=== PATIENT | female | born 1960 | race Hispanic/Latino ===

== ENCOUNTER 2019-08-30 11:57 | Emergency (ER) | payer SELFPAY ==
[2019-08-30] VITALS (7 sets, daily range): BP systolic 163–195; BP diastolic 70–84; PULSE 71–108; RESP 15–22; TEMP 37.7; O2SAT 97–99
--- NOTE | 2019-08-30 12:25 | DI.RAD.S_ITS ---
PROCEDURE: XR CHEST 1V INDICATIONS: elevated BP, indigestion TECHNIQUE: One view of the chest was acquired. COMPARISON: None. FINDINGS: Surgical changes and devices: None. Lungs and pleura: Interstitial prominence within the lungs is identified without a definite area of pulmonary consolidation. No large effusion or pneumothorax is appreciated. Mediastinum: Mediastinal contours appear normal. Heart size is normal. There is aortic atherosclerosis. Bones and chest wall: No suspicious bony lesions. Overlying soft tissues appear unremarkable. IMPRESSION: Mild interstitial prominence within the lungs may represent chronic lung changes. Pulmonary edema or interstitial pneumonia could also have this appearance and clinical correlation is recommended. Dictated by: David Camejo M.D. on 08/30/2019 at 12:00 Approved by: David Camejo M.D. on 08/30/2019 at 12:00
--- NOTE | 2019-08-30 12:31 | ED.CHESTPAIN ---
HPI - Chest Pain <KAE Blackburn - Last Filed: 08/30/19 23:49> General Chief Complaint: Urogenital-Female Stated Complaint: hb/ diabetes/ rt ear pain/ pain urinating Time Seen by Provider: 08/30/19 12:07 Source: family Mode of arrival: Family Vehicle Limitations: language barrier History of Present Illness HPI narrative: This is a 59-year-old female, nonsmoker, who is visiting son and family from [place] presents to ED with her son and [id number] with chief complain of elevated blood pressure, chronic UTI, right ear pain and medication refill request. Patient presents to walk-in clinic today and was referred to ER for an evaluation. [id number] reports she was concerned since patient's blood pressure at home was measured and noted as 187/111 and decided to bring her into the clinic. With elevated blood pressure, patient frequently feels as need to burp and pressure in chest and abdomen which has been causing difficulty with sleeping at night and also headache. Patient denies vision change, weakness to limbs, speech difficulty, balance problem, fever/chills, nausea or vomiting. Patient has a history of hypertension, diabetes, frequent UTIs and is currently taking multiple blood pressure medications and oral hypoglycemic agents. Patient is planning to return to [place] in September. Patient had taken decongestant that was prescribed in [place] and last dose was 4-5 days ago. She also reports occasional tingling/numbness to R lip since last March. Patient takes 2 baby aspirins daily. Related Data Home Medications Medication Instructions Recorded Confirmed amlodipine 5 mg PO DAILY 08/30/19 08/30/19 metformin 850 mg PO BID 08/30/19 08/30/19 nifedipine 30 mg PO DAILY 08/30/19 08/30/19 telmisartan 40 mg PO QACLUNCH 08/30/19 08/30/19 Previous Rx's Medication Instructions Recorded amlodipine 5 mg PO DAILY #60 tab 08/30/19 metformin 850 mg PO BID #120 tab 08/30/19 nifedipine 30 mg PO DAILY #60 tab 08/30/19 telmisartan 40 mg PO DAILY #60 tab 08/30/19 Allergies Allergy/AdvReac Type Severity Reaction Status Date / Time No Known Drug Allergies Allergy Verified 08/30/19 12:25 Review of Systems <KAE Blackburn - Last Filed: 08/30/19 23:49> Review of Systems Narrative: General: Denies fever, chills, fatigue, malaise, sweats. HEENT: Denies sinus pain, (+) ear pain, sore throat, difficulty swallowing, dizziness. Respiratory: Denies dyspnea, cough, wheezing, hemoptysis, sputum. Cardiovascular: HPI Gastrointestinal: Denies nausea, vomiting, abdominal pain, diarrhea, constipation, melena. : Denies dysuria, frequency, incontinence, hematuria, urinary retention. Musculoskeletal: Denies weakness, joint pain or bony pain. Skin: Denies rash, skin lesions, or other. Neurologic: Denies weakness, headache, numbness, change in speech, confusion, seizures, incoordination. Patient History <KAE Blackburn - Last Filed: 08/30/19 23:49> Medical History Chronic UTI (Acute) Social History Smoking Status: Never smoker Smoking Status: Never smoker alcohol intake frequency: 0-2 drinks per day Substance Use Type: does not use Exam <KAE Blackburn - Last Filed: 08/30/19 23:49> Narrative Exam Narrative: GEN: Alert, oriented x 3, well appearing and nourished, and in no acute distress. Head: Normal cephalic, atraumatic. No scalp or temporal tenderness, palpable mass or rash. EYES: Pupils are equal, round, and reactive to light and accommodation. Extraocular muscles are intact bilaterally. There is no subconjunctival hemorrhage, exudate and sclera non-icteric. ENT: Bilateral auditory canals and tympanic membranes clear. Hearing grossly intact. Nose without bleeding, purulent discharge or deviation. Facial sinuses nontender to palpate. Mucous membrane moist, no mucosal lesion. Throat without erythema, tonsillar hypertrophy or exudate. Uvula in midline, airway patent. Neck: Trachea in midline. No JVD, non-tender without lymphadenopathy. No masses or thyroid megaly. Supple, non-tender and no meningeal signs. CARDIAC: Normal regular rate and rhythm without murmurs, gallops, or rubs. No chest wall tenderness. No peripheral edema, cyanosis or pallor. Capillary refill is less than 2 seconds. RESPIRATORY: Lungs are clear to auscultate bilaterally. No cough, wheezes, rales, or rhonchi. No stridor, respiratory distress, increase work of breathing, or accessary muscle used. ABD: Abdomen soft, nontender and non-distended. No guarding or rebound tenderness to palpate. Bowel sounds are normal in all 4 quadrants. There is no palpable masses or organomegaly. EXT: Full painless ROM of all extremities with no loss of sensation, strength, effusion or edema. SKIN: Warm, dry, normal color for patient. No erythema, lesions or rash over visible areas. BACK: Nontender without deformity or crepitance. No flank tenderness. NEUROLOGICAL: Alert and oriented to place, time and person. Sensation and motor function intact bilaterally. No facial droops, dysphasia. Initial Vital Signs Initial Vital Signs: Vital Signs Temperature 100 F H 08/30/19 12:17 Pulse Rate 108 H 08/30/19 12:17 Respiratory Rate 22 08/30/19 12:17 Blood Pressure 195/84 H 08/30/19 12:17 Pulse Oximetry 99 08/30/19 12:17 <Esteban Marin DO - Last Filed: 08/31/19 08:03> Initial Vital Signs Initial Vital Signs: Vital Signs Temperature 100 F H 08/30/19 12:17 Pulse Rate 108 H 08/30/19 12:17 Respiratory Rate 22 08/30/19 12:17 Blood Pressure 195/84 H 08/30/19 12:17 Pulse Oximetry 99 08/30/19 12:17 Scores <KAE Blackburn - Last Filed: 08/30/19 23:49> GCS [place] coma scale eye opening: Spontaneous [place] coma scale verbal response: Orientated [place] coma scale motor response: Obey commands Gary coma scale total score: 15 HEART Score Heart Score history: Slightly Suspicious Heart Score EKG: Non-Specific repolarization disturbance Heart Score Age: 45-64 years old Heart Score risk factors: 1-2 risk factors Heart Score troponin: < or = to normal limit Heart Score Total: 3 NIH Stroke Scale Level of Conciousness: Alert, keenly responsive Ask month/age: Answers both questions correctly. Open/close eyes, close hand: Performs both tasks correctly Best gaze horizontal: Normal Visual pires: No visual loss Facial palsy: Normal symetrical movement Left arm drift: No drift for full 10 sec Right arm drift: No drift for full 10 sec Left leg drift: No drift for full 10 sec Right leg drift: No drift for full 10 sec Limb ataxia: Absent Sensory on face/arms/legs: Normal, no sensory loss Best language: No aphasia, normal Dysarthria: Normal Extinction or inattention: No abnormality Total NIH Stroke scale score: 0 Course <KAE Blackburn - Last Filed: 08/30/19 23:49> Orders Ordered: Discontinued Medications Al Hydrox/Mg Hydrox/Simethicone 20 ml/ Lidocaine HCl 15 ml 0 ml PO NOW ONE Stop: 08/30/19 16:49 Last Admin: 08/30/19 17:00 Dose: 20 ml Documented by: [facility] Sodium Chloride (Normal Saline 0.9%) 500 mls @ 1,000 mls/hr IV BOLUS PRN PRN Reason: Fluid replacement Last Infusion: 08/30/19 15:02 Dose: 0 mls/hr [facility] Admin: 08/30/19 13:42 Dose: 1,000 mls/hr Documented by: [facility] Vital Signs Vital signs: Vital Signs - 8 hr 08/30/19 15:37 08/30/19 16:28 08/30/19 17:32 Pulse Rate 71 75 82 Respiratory Rate 16 15 18 Blood Pressure [Left Arm] 167/70 H 163/76 H 177/82 H Pulse Oximetry 98 99 97 <Esteban Marin DO - Last Filed: 08/31/19 08:03> Orders Ordered: Discontinued Medications Al Hydrox/Mg Hydrox/Simethicone 20 ml/ Lidocaine HCl 15 ml 0 ml PO NOW ONE Stop: 08/30/19 16:49 Last Admin: 08/30/19 17:00 Dose: 20 ml Documented by: [facility] Sodium Chloride (Normal Saline 0.9%) 500 mls @ 1,000 mls/hr IV BOLUS PRN PRN Reason: Fluid replacement Last Infusion: 08/30/19 15:02 Dose: 0 mls/hr Documented by: [facility] Admin: 08/30/19 13:42 Dose: 1,000 mls/hr Documented by: [facility] Vital Signs Vital signs: Vital Signs - 8 hr 08/30/19 15:37 08/30/19 16:28 08/30/19 17:32 Pulse Rate 71 75 82 Respiratory Rate 16 15 18 Blood Pressure [Left Arm] 167/70 H 163/76 H 177/82 H Pulse Oximetry 98 99 97 MDM - Chest Pain <Ambrosio KAE Reaves - Last Filed: 08/30/19 23:49> Differential Diagnosis Differential diagnosis: Likely atypical chest pain and other (Encounter for medication refill, hypertension, diabetes, esophageal spasm) Medical Records Data Attestation: I reviewed the patient's medical records. Lab Data Attestation: I reviewed the patient's lab results. Result diagrams: 08/30/19 12:25 08/30/19 12:25 Labs: Lab Results 08/30/19 08/30/19 08/30/19 Range/Units 12:25 12:25 12:25 WBC 11.8 H (4.5-11.0) X10^3/uL RBC 4.65 (4.0-5.2) X10^6/uL Hgb 14.4 (12.0-16.0) g/dL Hct 41.4 (36-46) % MCV 88.9 (80-100) fL MCH 31.0 (26-34) PG MCHC 34.9 (30-36) % RDW 12.6 (11.6-14.8) % Plt Count 255 (150-400) X10^3/uL Neut % (Auto) 68.8 (50-75) % Lymph % (Auto) 21.1 L (25-40) % [place] % (Auto) 4.4 (3-14) % Eos % (Auto) 5.1 H (2-4) % Baso % (Auto) 0.6 (0-2) % Neut # (Auto) 8100 H (4540-8865) /uL Lymph # (Auto) 2500 (1118-6930) /uL [place] # (Auto) 500 (0-900) /uL Eos # (Auto) 600 H (0-450) /uL Baso # (Auto) 100 (0-100) /uL PT 11.3 (10.1-12.7) SECONDS INR 1.0 (0.9-1.3) APTT 34 (26.4-36.2) SECONDS Sodium 139 (137-145) mmol/L Potassium 3.7 (3.4-5.1) mmol/L Chloride 97 L (98-107) mmol/L Carbon Dioxide 28 (22-32) mmol/L BUN 13 (7-17) mg/dL Creatinine 0.60 (0.52-1.04) mg/dL Estimated GFR > 60.0 (>60) mL/min BUN/Creatinine Ratio 21.7 (6-22) Glucose 243 H (80-110) mg/dL Calcium 9.9 (8.4-10.2) mg/dL Total Bilirubin 0.5 (0.2-1.3) mg/dL AST 33 (14-36) IU/L ALT 26 (<35) IU/L Alkaline Phosphatase 123 (38-126) U/L Total Creatine Kinase 66 (30-135) U/L CK-MB (CK-2) TNP CK-MB (CK-2) Rel Index TNP Troponin I < 0.012 (0.01-0.034) ng/mL Total Protein 8.1 (6.3-8.2) g/dL Albumin 4.8 (3.5-5.0) g/dL Globulin 3.3 (1.7-4.1) g/dL Albumin/Globulin Ratio 1.5 (1.0-2.8) Lipase 136 (23-300) U/L 08/30/19 Range/Units 15:26 WBC (4.5-11.0) X10^3/uL RBC (4.0-5.2) X10^6/uL Hgb (12.0-16.0) g/dL Hct (36-46) % MCV (80-100) fL MCH (26-34) PG MCHC (30-36) % RDW (11.6-14.8) % Plt Count (150-400) X10^3/uL Neut % (Auto) (50-75) % Lymph % (Auto) (25-40) % [place] % (Auto) (3-14) % Eos % (Auto) (2-4) % Baso % (Auto) (0-2) % Neut # (Auto) (8517-7438) /uL Lymph # (Auto) (2629-5736) /uL [place] # (Auto) (0-900) /uL Eos # (Auto) (0-450) /uL Baso # (Auto) (0-100) /uL PT (10.1-12.7) SECONDS INR (0.9-1.3) APTT (26.4-36.2) SECONDS Sodium (137-145) mmol/L Potassium (3.4-5.1) mmol/L Chloride (98-107) mmol/L Carbon Dioxide (22-32) mmol/L BUN (7-17) mg/dL Creatinine (0.52-1.04) mg/dL Estimated GFR (>60) mL/min BUN/Creatinine Ratio (6-22) Glucose (80-110) mg/dL Calcium (8.4-10.2) mg/dL Total Bilirubin (0.2-1.3) mg/dL AST (14-36) IU/L ALT (<35) IU/L Alkaline Phosphatase (38-126) U/L Total Creatine Kinase (30-135) U/L CK-MB (CK-2) CK-MB (CK-2) Rel Index Troponin I < 0.012 (0.01-0.034) ng/mL Total Protein (6.3-8.2) g/dL Albumin (3.5-5.0) g/dL Globulin (1.7-4.1) g/dL Albumin/Globulin Ratio (1.0-2.8) Lipase (23-300) U/L Urine Dip Bedside Urine Glucose 100 mg/dl Bedside Urine Bilirubin - Negative Bedside Urine Ketone +/- 5 Urine Specific [place] 1.015 Bedside Urine Occult Blood - Negative Bedside Urine pH 6.0 Bedside Urine Protein - Negative Bedside Urine Urobilinogen - Negative Bedside Urine Nitrite - Negative Bedside Urine Leukocytes - Negative Esterase Imaging Data Chest x-ray: Radiologist's Impression: [address] [address] XRay Report Signed Patient: Elizabeth Shah#: [id number] : 8Acct:[id number] Age/Sex: 59 / FDate of Service: 08/30/19 Loc: ED Accession Number: [id number] Procedure: XR chest 1V Ordering Provider: Ambrosio Reaves PROCEDURE: XR CHEST 1V INDICATIONS: elevated BP, indigestion TECHNIQUE: One view of the chest was acquired. COMPARISON: None. FINDINGS: Surgical changes and devices: None. Lungs and pleura: Interstitial prominence within the lungs is identified without a definite area of pulmonary consolidation. No large effusion or pneumothorax is appreciated. Mediastinum: Mediastinal contours appear normal. Heart size is normal. There is aortic atherosclerosis. Bones and chest wall: No suspicious bony lesions. Overlying soft tissues appear unremarkable. IMPRESSION: Mild interstitial prominence within the lungs may represent chronic lung changes. Pulmonary edema or interstitial pneumonia could also have this appearance and clinical correlation is recommended. Dictated by: David Camejo M.D. on 08/30/2019 at 12:00 Approved by: David Camejo M.D. on 08/30/2019 at 12:00 ECG Data Attestation: I personally reviewed and interpreted this ECG as follows: Prior ECG tracings: not available for review Interpretation: #1-SR rate at 87 L [place]. Moderate T wave abnormalty TN int 149, QRS duration 104, QTc 444 #2-SR rate at [address] [place] [address] and T anormalty TN int 154, QRS dur 104, QTc 435 No significant changes from the 1st EKG MDM Narrative Medical decision making narrative: This is a 59-year-old female who is visiting her children from [place] presents to ED with requesting hypertension and diabetes medication refill and [id number] is concerned with patient's elevated blood pressure. Patient also reports frequent feeling of burping and pressure in epigastric region and urinary frequency. Patient's had significantly elevated blood pressure as 195/84 with heart rate of 108. Given patient's indigestion/burping sensation, cardiac enzyme test, EKG and chest x-ray were ordered. First cardiac enzymes were negative. Chest x-ray does not show acute findings but mild interstitial prominence within the lungs which may present chronic lung changes, pulmonary edema or interstitial pneumonia. Patient was afebrile and denied dyspnea, short of breath, with O2 sat of 97-99% in room air. Lung sounds were clear. EKG was sinus rhythm with moderate T-wave abnormalty and L axis dominant. CBC chemistry test was unremarkable except elevated blood glucose of 243. 3 hour troponin was also negative with no changes in EKG. Patient's blood pressure had improved to 160-170/70-80 mostly with normal heart rate. Urine was negative for nitrite and leukocytes esterase with urine glucose of 100 and a small amount of urine ketones. Normal LFT and kidney function test today. Patient's routine medication has been refilled as requested for 2 months. Patient advised to follow-up with PCP and consumer lender for stress test when she returns to [place]. Patient was medicated with GI cocktail which resolved her symptoms. Patient has occasional tingling and numbness on her lip may due to diabetic paresthesia or cervical radiculopathy after she fell and injured her neck and shoulder a several months ago which her symptoms have started as well. Patient advised to monitor her blood pressure 3 times a day for 3 times a week and keep track on days to bring back to [place] for follow-up with PCP for possible medication adjustment. Patient advised continue to take aspirin daily. If patient noticed significantly elevated blood pressure at home, patient was instructed to take additional half tab of 1 update once a day medication and to recheck blood pressure. Return precautions were discussed with the patient and verbalized understanding and agrees with the treatment plan. Good Rx coupon has been provided. <Esteban Marin, DO - Last Filed: 08/31/19 08:03> Lab Data Labs: Lab Results 08/30/19 08/30/19 08/30/19 Range/Units 12:25 12:25 12:25 WBC 11.8 H (4.5-11.0) X10^3/uL RBC 4.65 (4.0-5.2) X10^6/uL Hgb 14.4 (12.0-16.0) g/dL Hct 41.4 (36-46) % MCV 88.9 (80-100) fL MCH 31.0 (26-34) PG MCHC 34.9 (30-36) % RDW 12.6 (11.6-14.8) % Plt Count 255 (150-400) X10^3/uL Neut % (Auto) 68.8 (50-75) % Lymph % (Auto) 21.1 L (25-40) % [place] % (Auto) 4.4 (3-14) % Eos % (Auto) 5.1 H (2-4) % Baso % (Auto) 0.6 (0-2) % Neut # (Auto) 8100 H (4948-6534) /uL Lymph # (Auto) 2500 (9310-0647) /uL [place] # (Auto) 500 (0-900) /uL Eos # (Auto) 600 H (0-450) /uL Baso # (Auto) 100 (0-100) /uL PT 11.3 (10.1-12.7) SECONDS INR 1.0 (0.9-1.3) APTT 34 (26.4-36.2) SECONDS Sodium 139 (137-145) mmol/L Potassium 3.7 (3.4-5.1) mmol/L Chloride 97 L (98-107) mmol/L Carbon Dioxide 28 (22-32) mmol/L BUN 13 (7-17) mg/dL Creatinine 0.60 (0.52-1.04) mg/dL Estimated GFR > 60.0 (>60) mL/min BUN/Creatinine Ratio 21.7 (6-22) Glucose 243 H (80-110) mg/dL Calcium 9.9 (8.4-10.2) mg/dL Total Bilirubin 0.5 (0.2-1.3) mg/dL AST 33 (14-36) IU/L ALT 26 (<35) IU/L Alkaline Phosphatase 123 (38-126) U/L Total Creatine Kinase 66 (30-135) U/L CK-MB (CK-2) TNP CK-MB (CK-2) Rel Index TNP Troponin I < 0.012 (0.01-0.034) ng/mL Total Protein 8.1 (6.3-8.2) g/dL Albumin 4.8 (3.5-5.0) g/dL Globulin 3.3 (1.7-4.1) g/dL Albumin/Globulin Ratio 1.5 (1.0-2.8) Lipase 136 (23-300) U/L 08/30/19 Range/Units 15:26 WBC (4.5-11.0) X10^3/uL RBC (4.0-5.2) X10^6/uL Hgb (12.0-16.0) g/dL Hct (36-46) % MCV (80-100) fL MCH (26-34) PG MCHC (30-36) % RDW (11.6-14.8) % Plt Count (150-400) X10^3/uL Neut % (Auto) (50-75) % Lymph % (Auto) (25-40) % [place] % (Auto) (3-14) % Eos % (Auto) (2-4) % Baso % (Auto) (0-2) % Neut # (Auto) (2725-0354) /uL Lymph # (Auto) (8949-2681) /uL [place] # (Auto) (0-900) /uL Eos # (Auto) (0-450) /uL Baso # (Auto) (0-100) /uL PT (10.1-12.7) SECONDS INR (0.9-1.3) APTT (26.4-36.2) SECONDS Sodium (137-145) mmol/L Potassium (3.4-5.1) mmol/L Chloride (98-107) mmol/L Carbon Dioxide (22-32) mmol/L BUN (7-17) mg/dL Creatinine (0.52-1.04) mg/dL Estimated GFR (>60) mL/min BUN/Creatinine Ratio (6-22) Glucose (80-110) mg/dL Calcium (8.4-10.2) mg/dL Total Bilirubin (0.2-1.3) mg/dL AST (14-36) IU/L ALT (<35) IU/L Alkaline Phosphatase (38-126) U/L Total Creatine Kinase (30-135) U/L CK-MB (CK-2) CK-MB (CK-2) Rel Index Troponin I < 0.012 (0.01-0.034) ng/mL Total Protein (6.3-8.2) g/dL Albumin (3.5-5.0) g/dL Globulin (1.7-4.1) g/dL Albumin/Globulin Ratio (1.0-2.8) Lipase (23-300) U/L Urine Dip Bedside Urine Glucose 100 mg/dl Bedside Urine Bilirubin - Negative Bedside Urine Ketone +/- 5 Urine Specific [place] 1.015 Bedside Urine Occult Blood - Negative Bedside Urine pH 6.0 Bedside Urine Protein - Negative Bedside Urine Urobilinogen - Negative Bedside Urine Nitrite - Negative Bedside Urine Leukocytes - Negative Esterase Discharge Plan Departure Patient Disposition: Home Clinical Impression: Elevated blood pressure reading with diagnosis of hypertension, Encounter for medication refill Diabetes Qualifiers: Diabetes mellitus type: type 2 Diabetes mellitus tank terminal gauger insulin use: unspecified tank terminal gauger insulin use status Diabetes mellitus complication status: with other specified complication Qualified Code(s): E11.69 - Type 2 diabetes mellitus with other specified complication Discharge Date/Time: 08/30/19 17:46 Instructions: Essential Hypertension, DI for Diabetes Type 2 Activity Restrictions/Additional Instructions: You have been diagnosed with [elevated blood pressure, diabetes, urinary frequency. Cardiac enzyme test that was done twice today with the EKG were unremarkable. Urine doesn't appears to be having an infection. Your chemistry test was unremarkable except elevated glucose 243. Mild interstitial prominence within the lungs may indicating chronic lung changes. Your blood pressure was average in 160s to 170s over 70s to 80s while in the ED. you were medicated with GI cocktail while in ED. you can add Mylanta/ Zantac/Omeprazole if you have stomach issues which you can get it [id number].]. What to do: *Take your medications as directed. *Follow up with your primary care provider in 2-3 days, call for an appointment. Let them know you were seen in the ED and that we asked you to be seen in follow up. You may need stress test when you return to [place]. *Return to ED if you have any new, worsening, or concerning symptoms, such as [chest pain, breathing difficulty, dizziness, speech difficulty, vision change, balance problem, or any acute concerns]. Prescriptions: New amlodipine 5 mg tablet 5 mg PO DAILY Qty: 60 RF: 0 metformin 850 mg tablet 850 mg PO BID Qty: 120 RF: 0 nifedipine 30 mg tablet extended release 30 mg PO DAILY Qty: 60 RF: 0 telmisartan 40 mg tablet 40 mg PO DAILY Qty: 60 RF: 0 No Action metformin 850 mg Tablet 850 mg PO BID RF: 0 nifedipine 30 mg Tablet Extended Release 30 mg PO DAILY RF: 0 amlodipine 5 mg Tablet 5 mg PO DAILY RF: 0 telmisartan 40 mg Tablet 40 mg PO QACLUNCH RF: 0
[2019-08-30 12:33] LABS: Add Manual Diff / Slide Review NO; Basophils Absolute Auto 100 /uL (0-100); Basophils Percent Auto 0.6 % (0-2); Eosinophils Absolute Auto 600 /uL (0-450); Eosinophils Percent Auto 5.1 % (2-4); Hematocrit 41.4 % (36-46); Hemoglobin 14.4 g/dL (12.0-16.0); Lymphocytes Absolute Auto 2500 /uL (1100-4500); Lymphocytes Percent Auto 21.1 % (25-40); Mean Corpuscular HGB Conc 34.9 % (30-36); Mean Corpuscular Volume 88.9 fL (80-100); Monocytes Absolute Auto 500 /uL (0-900); Monocytes Percent Auto 4.4 % (3-14); Neutrophils Absolute Auto 8100 /uL (1500-7000); Neutrophils Percent Auto 68.8 % (50-75); Platelet Count 255 X10^3/uL (150-400); Red Blood Cell Count 4.65 X10^6/uL (4.0-5.2); Red Cell Distribution Width 12.6 % (11.6-14.8); White Blood Cell Count 11.8 X10^3/uL (4.5-11.0)
[2019-08-30 12:43] LABS: Prothrombin Time 11.3 SECONDS (10.1-12.7)
[2019-08-30 12:46] LABS: PTT Partial Thromboplastin Tim 34 SECONDS (26.4-36.2)
[2019-08-30 13:04] LABS: Alanine Aminotransferase 26 IU/L (<35); Albumin 4.8 g/dL (3.5-5.0); Albumin Globulin Ratio 1.5 (1.0-2.8); Alkaline Phosphatase 123 U/L (38-126); Aspartate Aminotransferase 33 IU/L (14-36); BUN Creatinine Ratio 21.7 (6-22); Bilirubin Total 0.5 mg/dL (0.2-1.3); Blood Urea Nitrogen 13 mg/dL (7-17); Calcium 9.9 mg/dL (8.4-10.2); Carbon Dioxide 28 mmol/L (22-32); Chloride 97 mmol/L (98-107); Creatine Kinase 66 U/L (30-135); Estimated Glomerular Filt Rate > 60.0 mL/min (>60); Globulin 3.3 g/dL (1.7-4.1); Glucose 243 mg/dL (80-110); HEMOLYSIS < 15 (0-50); Lipase 136 U/L (23-300); Potassium 3.7 mmol/L (3.4-5.1); Sodium 139 mmol/L (137-145); Total Protein 8.1 g/dL (6.3-8.2)
[2019-08-30 13:15] LABS: Troponin I < 0.012 ng/mL (0.01-0.034)
[2019-08-30] MEDS: SODIUM CHLORIDE 0.9% 500 ML 1000 ML IV (13:42)
--- NOTE | 2019-08-30 14:57 | PC.NURSE ---
pt ambulating to bathroom
[2019-08-30 17:00] LABS: Troponin I < 0.012 ng/mL (0.01-0.034)
[2019-08-30] MEDS: MAG HYDROX/ALUMINUM/SIMETH SUS 20 ML, LIDOCAINE VISCOUS 2% 15 ML PO (17:00)
== END 2019-08-30 17:46 | disposition home or self-care (01) ==
PROVIDERS: Emergency Provider Nurse Practitioner Family
DX: I10 Essential (primary) hypertension (principal); E11.69 Type 2 diabetes mellitus with other specified complication; K30 Functional dyspepsia; R30.9 Painful micturition, unspecified
CPT/HCPCS: 36415; 71045; 80053; 81003; 82550; 83690; 84484; 85025; 85610; 85730; 93005; 96360; 99285

== ENCOUNTER 2023-06-11 17:34 | Emergency (ER) | payer SELFPAY ==
[2023-06-11] VITALS (16 sets, daily range): BP systolic 150–202; BP diastolic 71–97; PULSE 63–77; RESP 16–21; TEMP 36.4–37.1; O2SAT 96–98
--- NOTE | 2023-06-11 18:05 | DI.RAD.S_ITS ---
PROCEDURE: XR CHEST 1V INDICATIONS: chest pain TECHNIQUE: One view of the chest was acquired. COMPARISON: [facility], CR, XR CHEST 1V, 08/30/2019, 12:45. FINDINGS: Surgical changes and devices: None. Lungs and pleura: Lungs are clear. No pleural effusions or pneumothorax. Mediastinum: Mediastinal contours appear normal. Heart size is normal. Bones and chest wall: No suspicious bony lesions. Overlying soft tissues appear unremarkable. IMPRESSION: No acute cardiopulmonary pathology. Dictated by: Hai Miguel M.D. on 06/11/2023 at 18:32 Approved by: Hai Miguel M.D. on 06/11/2023 at 18:32
--- NOTE | 2023-06-11 18:20 | DI.RAD.S_ITS ---
PROCEDURE: XR ABDOMEN MIN 2V INDICATIONS: abd pain L sided, goes to chest TECHNIQUE: 2 views of the abdomen were acquired. COMPARISON: None. FINDINGS: Surgical changes and devices: None. Bowel: No pneumoperitoneum. The bowel gas pattern is nonobstructive. Significant fecal burden throughout the colon is seen. Soft tissues: No masses; visualized solid organ contours appear normal in size. No suspicious abdominal calcifications. Bones: No suspicious bony abnormalities. IMPRESSION: Moderate constipation. No gross free air. No abnormal renal calcifications. Dictated by: Hai Miguel M.D. on 06/11/2023 at 18:51 Approved by: Hai Miguel M.D. on 06/11/2023 at 18:52
[2023-06-11 18:47] LABS: Add Manual Diff / Slide Review NO; Basophils Absolute Auto 100 /uL (0-100); Basophils Percent Auto 0.4 % (0-2); Eosinophils Absolute Auto 100 /uL (0-450); Hematocrit 40.9 % (36-46); Hemoglobin 13.9 g/dL (12.0-16.0); Lymphocytes Absolute Auto 2800 /uL (1100-4500); Lymphocytes Percent Auto 23.1 % (25-40); Mean Corpuscular HGB Conc 33.9 % (30-36); Mean Corpuscular Hemoglobin 30.2 PG (26-34); Mean Corpuscular Volume 88.9 fL (80-100); Monocytes Absolute Auto 700 /uL (0-900); Monocytes Percent Auto 5.5 % (3-14); Neutrophils Absolute Auto 8600 /uL (1500-7000); Platelet Count 191 X10^3/uL (150-400); Prothrombin Time 11.5 SECONDS (10.1-12.7); Red Cell Distribution Width 13.5 % (11.6-14.8); White Blood Cell Count 12.3 X10^3/uL (4.5-11.0)
[2023-06-11 18:49] LABS: PTT Partial Thromboplastin Tim 29 SECONDS (26-36)
[2023-06-11 18:59] LABS: Alanine Aminotransferase 34 IU/L (<35); Albumin 4.3 g/dL (3.5-5.0); Albumin Globulin Ratio 1.2 (1.0-2.8); Alkaline Phosphatase 82 U/L (38-126); Aspartate Aminotransferase 35 IU/L (14-36); BUN Creatinine Ratio 23.1 (6-22); Bilirubin Total 0.7 mg/dL (0.2-1.3); Blood Urea Nitrogen 12 mg/dL (7-17); Calcium 9.6 mg/dL (8.4-10.2); Carbon Dioxide 30 mmol/L (22-32); Chloride 97 mmol/L (98-107); Creatine Kinase 62 U/L (30-135); Estimated Glomerular Filt Rate > 60 mL/min (>60); Globulin 3.5 g/dL (1.7-4.1); Glucose 225 mg/dL (80-110); HEMOLYSIS < 15 (0-50); Lipase 167 U/L (23-300); Magnesium 2.3 mg/dL (1.6-2.3); Potassium 3.4 mmol/L (3.4-5.1); Sodium 138 mmol/L (137-145); Total Protein 7.8 g/dL (6.3-8.2)
[2023-06-11 19:10] LABS: Troponin I < 0.012 ng/mL (0.01-0.034)
--- NOTE | 2023-06-11 19:14 | PC.NURSE ---
patient complains of abdominal pain mainly on left side that radiates from left lower quadrant up to the left upper quadrant/lower left chest area.
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
--- NOTE | 2023-06-11 20:23 | DI.CT.S_ITS ---
PROCEDURE: CT ABDOMEN PELVIS W CON INDICATIONS: abd pain, L side, months, constipation TECHNIQUE: After the administration of intravenous contrast, axial sections acquired from the lung bases to the pubic symphysis. Coronal and sagittal reformats were performed. For radiation dose reduction, the following was used: automated exposure control, adjustment of mA and/or kV according to patient size. COMPARISON: None. FINDINGS: Image quality: Excellent. Lung bases: Noncalcified part solid left lower lobe 4 mm lung nodule, 5/1. Minor left lower lung atelectasis. Subcarinal and left infrahilar round calcifications. Heart: No significant findings. ABDOMEN: Liver: Mild diffuse parenchymal hypodensity. Elongated right hepatic lobe. Gallbladder: 2 dependently layering peripherally calcified 6 mm stones. No wall thickening. Biliary ducts: Nondilated. Pancreas: Normal glandular morphology. There is a single small coarse calcification in the pancreatic tail. No ductal dilatation. Spleen: Normal. Adrenal Glands: No nodules. Kidneys and Ureters: Symmetric enhancement. No nephrolithiasis or hydronephrosis. No hydroureter. Occasional bilateral subcentimeter hypodensities, likely cysts. Stomach and Bowel: The proximal and transverse colon is slightly distended with mainly liquid stool and contains air-fluid levels. There is semi solid stool in the distal colon. No suspicious wall thickening or pericolonic inflammation. A normal appendix is present. Stomach and small bowel are within normal limits. Peritoneum: No abnormal intraperitoneal fluid. No free air. Ventral Wall: No hernias. Abdominal Nodes: No retroperitoneal or mesenteric adenopathy by size criteria. Vessels: Aorta and inferior vena cava are normal in size. PELVIS: Pelvic Organs: The uterus is age-appropriate. Ovaries are not well assessed by CT. No suspicious adnexal masses. Bladder: Normal bladder wall thickness. No stone. Pelvic Nodes: No enlarged lymph nodes. Miscellaneous: No hernias are seen. Bones: Unremarkable. IMPRESSION: 1. Liquid stool and air-fluid levels in the colon suggests gastroenteritis. No CT evidence of acute colitis. 2. Cholelithiasis. 3. Mild hepatic steatosis. 4. Nonspecific 4 mm left lower lobe lung nodule, given presence of round mediastinal and pulmonary calcifications, this is likely a noncalcified granuloma. If there are risk factors for lung disease, of follow-up chest CT in 6-12 months to document stability is recommended. Dictated by: Petty Oliveira M.D. on 06/11/2023 at 21:34 Approved by: Petty Oliveira M.D. on 06/11/2023 at 21:42
[2023-06-11] MEDS: KETOROLAC 30 MG/ML VIAL 15 MG IV (22:56)
== END 2023-06-11 23:06 | disposition home or self-care (01) ==
PROVIDERS: Emergency Medicine; Emergency Provider Emergency Medicine
DX: K80.20 Calculus of gallbladder without cholecystitis without obstruction (principal); R10.9 Unspecified abdominal pain; K76.0 Fatty (change of) liver, not elsewhere classified; R91.1 Solitary pulmonary nodule
CPT/HCPCS: 36415; 71045; 74019; 74177; 80053; 81003; 82550; 83690; 83735; 84484; 85025; 85610; 85730; 93005; 93010; 96374; 99284; J1885; Q9967